=== PATIENT | female | born 1960 | race Caucasian/White ===

== ENCOUNTER 2016-04-23 01:50 | Observation (INO) | payer BC ==
[2016-04-23] MEDS ORDERED: 0.9 % SODIUM CHLORIDE 1,000 ML BAG IV ONE (02:13)
[2016-04-23] MEDS ORDERED: ONDANSETRON HCL IV 4 MG/2 ML VIAL IV ONE (02:13)
[2016-04-23] MEDS ORDERED: MORPHINE SULFATE 5 MG/ML PFS IVP ONE (02:15)
--- NOTE | 2016-04-23 02:19 | Emergency Department Record ---
History of Present Illness - General Chief Complaint: Abdominal Pain Stated Complaint: PAIN IN STOMACH Time Seen by Provider: 04/23/16 02:13 Source: Patient, Family Mode of Arrival: Ambulatory Limitations: No limitations - History of Present Illness Initial Comments: 56 yo female presents with mid abdominal pain since midnight. The pain woke her up. The pain is in the RUQ as well. She denies any symptoms during the day. She has some nausea but no vomiting. No diarrhea. The pain does not radiate to the back. No chest pain. She has had bariatric surgery in 2007 in [place] with a sleeve, hysterectomy and bladder suspension. No history of HTN, DM, CAD. She is on iron and vitamins. PCP is Dr Alford in [place]. MD Complaint: Abdominal pain Onset/Timin -: Hour(s) Location: Epigastric Radiation: Back Migration to: No migration Severity: Moderate Quality: Aching Consistency: Constant Improves With: Nothing Worsens With: Nothing Context: Sick contacts Associated Symptoms: Denies other symptoms - Related Data Patient : No Home Medications Medication Instructions Recorded Confirmed Last Taken Cholecalciferol (Vitamin D3) 5,000 unit PO DAILY 04/23/16 04/23/16 04/23/16 [Vitamin D3] Ferrous Sulfate [Iron] 325 mg PO DAILY 04/23/16 04/23/16 04/23/16 Lansoprazole [Prevacid] 30 mg PO 04/23/16 04/23/16 Allergies Allergy/AdvReac Type Severity Reaction Status Date / Time No Known Drug Allergies Allergy Verified 04/23/16 01:57 Travel Screening - Travel/Exposure Within Last 30 Days Have you traveled within the last 30 days?: No - Travel/Exposure Within Last Year Have you traveled outside the [place] in the last year?: No - Additonal Travel Details Have you been exposed to anyone with a communicable illness?: No - Travel Symptoms Symptom Screening: None Review of Systems Constitutional: Denies: Chills, Fever, Malaise, Weakness Eyes: Denies: Eye discharge ENT: Denies: Congestion, Throat pain Respiratory: Denies: Cough Cardiovascular: Denies: Chest pain, Palpitations, Syncope Endocrine: Denies: Fatigue, Polydipsia Gastrointestinal: Reports: Abdominal pain, Nausea. Denies: Constipation, Diarrhea, Hematemesis, Hematochezia, Melena, Vomiting Genitourinary: Denies: Dysuria, Urgency Musculoskeletal: Denies: Arthralgia, Back pain, Joint swelling, Myalgia, Neck pain Skin: Denies: Bruising, Change in color, Rash Neurological: Denies: Confusion, Headache Psychiatric: Denies: Anxiety Hematological/Lymphatic: Denies: Blood Clots, Easy bleeding, Easy bruising, Swollen glands Past Medical History - SOCIAL HISTORY Smoking Status: Never smoker Alcohol Use: Occassional Drug Use: None - RESPIRATORY Hx Respiratory Disorders: No - CARDIOVASCULAR Hx Cardio Disorders: No - NEURO Hx Neuro Disorders: No - GI Hx Reflux: Yes - Hx Genitourinary Disorders: No - ENDOCRINE Hx Endocrine Disorders: No - MUSCULOSKELETAL Hx Musculoskeletal Disorders: No - PSYCH Hx Psych Problems: No - HEMATOLOGY/ONCOLOGY Hx Hematology/Oncology Disorders: No Family Medical History Any Significant Family History?: No Physical Exam - General General Appearance: Alert, Oriented x3, Cooperative, No acute distress Limitations: No limitations - Head Head exam: Normal inspection - Eye Eye exam: Normal appearance, PERRL. negative: Conjunctival injection - ENT ENT exam: Normal exam, Mucous membranes moist Ear exam: Normal external inspection Nasal Exam: Normal inspection Mouth exam: Normal external inspection Teeth exam: Normal inspection Throat exam: Normal inspection - Neck Neck exam: Normal inspection, Full ROM. negative: Tenderness - Respiratory Respiratory exam: Normal lung sounds bilaterally. negative: Respiratory distress - Cardiovascular Cardiovascular Exam: Regular rate, Normal rhythm, Normal heart sounds - GI/Abdominal GI/Abdominal exam: Soft, Normal bowel sounds, Guarding, Tenderness (tender epigastric and RUQ, otherwise very soft,). negative: Diminished bowel sounds, Distended, Hyperactive bowel sounds, Pulsatile mass - Rectal Rectal exam: Deferred - exam: Deferred - Extremities Extremities exam: Normal inspection, Full ROM, Normal capillary refill. negative: Pedal edema, Tenderness - Back Back exam: Reports: Normal inspection. Denies: CVA tenderness (R), CVA tenderness (L), Vertebral tenderness - Neurological Neurological exam: Alert, Normal gait, Oriented X3, Reflexes normal - Psychiatric Psychiatric exam: Normal affect, Normal mood. negative: Agitated, Anxious - Skin Skin exam: Dry, Intact, Normal color, Warm Course Vital Signs 04/23/16 01:59 Temperature 97.4 F L Pulse Rate 50 L Respiratory 18 Rate Blood Pressure 98/57 Pulse Ox 100 - Reevaluation(s) Reevaluation #1: EKG 0216 sinus janelle at 46, intervals QTC 458, axis normal ST normal without acute changes 04/23/16 02:22 Reevaluation #2: Repeat BP 104/54 EMR reviewed. No prior visits 04/23/16 02:30 Reevaluation #3: the labs were reviewed no acute changes of the CBC, glucose is 148 with mild increase in AST,ALT at 76, 54 04/23/16 02:49 Reevaluation #4: The patient is doing much better at this time. No nausea and her pain is well controlled she reports to me 04/23/16 02:57 UA with Moderate LE, 6-10 WBC, and Few Bacteria, Nitrite negative. 04/23/16 03:05 Reevaluation #5: The [facility]: The gallbladder is distended. Multiple calcified gallstone are present. Correlate with US or HIDA. 04/23/16 05:13 - Consultations Consultation #1: I JEFF Ryan He will admit to [facility] for gall bladder surgery She will be admitted NPO, IVF, IV antibiotics Medical Decision Making - Lab Data Result diagrams: 04/23/16 02:15 04/23/16 02:15 Disposition Disposition: Admit Clinical Impression: Biliary colic, Acute cholecystitis Disposition: Still a Patient at [facility] Decision to Admit: Admit from ER Decision to Admit Date: 04/23/16 Decision to Admit Time: 06:13 Condition: (1) Good Instructions: Biliary Colic (ED) Forms: Patient Portal Access Time of Disposition: 06:13
[2016-04-23 02:24] LABS: BASO % 0.6 % (0-6); EOS % 2.5 % (0-6); GRAN % 56.1 % (47-80); HEMATOCRIT 35.1 % (35.0-47.0); HEMOGLOBIN 11.6 gm/dl (11.6-16.0); LYMPH % 34.6 % (16-45); MEAN CELL VOLUME 88.4 fl (81-97); MEAN CORPUSCULAR HEMOGLOBIN 29.2 pg (27-33); MEAN PLATELET VOLUME 8.4 fl (7.4-10.4); MONO % 6.2 % (0-9); PLATELET COUNT 311 K/uL (130-400); RED BLOOD COUNT 3.97 M/uL (3.80-5.40); RED CELL DISTRIBUTION WIDTH 13.5 % (11.5-14.5); WHITE BLOOD COUNT W/O DIFF 6.3 K/uL (4.2-12.2)
[2016-04-23 02:36] LABS: ALB/GLOB RATIO 1.3 (1.1-1.8); ALBUMIN 3.9 gm/dL (3.5-5.0); ALKALINE PHOSPHATASE 97 U/L (38-126); ALT/SGPT 54 U/L (9-52); AST/SGOT 76 U/L (14-36); BILIRUBIN,TOTAL 0.24 mg/dL (0.2-1.3); BLOOD UREA NITROGEN 16 mg/dL (7-17); CREATININE 0.8 mg/dL (0.52-1.04); EST GLOMERULAR FILTRATION RATE > 60 ml/min; GLUCOSE,RANDOM 148 mg/dL (70-110); LIPASE 113 U/L (23-300); TOTAL PROTEIN 6.8 gm/dL (6.3-8.2)
[2016-04-23 02:45] LABS: URINE APPEARANCE CLEAR; URINE BILIRUBIN NEGATIVE (NEGATIVE); URINE BLOOD NEGATIVE (NEGATIVE); URINE COLOR YELLOW; URINE GLUCOSE (UA) NEGATIVE (NEGATIVE); URINE KETONE NEGATIVE (NEGATIVE); URINE LEUKOCYTE ESTERASE MODERATE (NEGATIVE); URINE NITRITE NEGATIVE (NEGATIVE); URINE PROTEIN NEGATIVE (NEGATIVE); URINE UROBILINOGEN 0.2 E.U./dL (0.20 - 1.00)
[2016-04-23 02:57] LABS: INR 0.91; PARTIAL THROMBOPLASTIN TIME 23.6 SECONDS (24.5-39.1); PROTHROMBIN TIME (PATIENT) 10.3 SECONDS (9.5-12.1)
[2016-04-23 02:58] LABS: URINE BACTERIA FEW; URINE RBC 0 - 2 (NONE SEEN)
[2016-04-23] MEDS ORDERED: 0.9 % SODIUM CHLORIDE 1000ML 1,000 ML IV ONE (05:27)
[2016-04-23] MEDS ORDERED: ERTAPENEM SODIUM 1 G in 0.9 % SODIUM CHLORIDE 100ML 100 ML IVPB ONE (06:13)
[2016-04-23] MEDS ORDERED: HYDROMORPHONE HCL 1 MG/ML CPJ IVP ONE (06:36)
[2016-04-23] MEDS ORDERED: HYDROMORPHONE HCL 1 MG/ML CPJ IVP PRN ×2 (07:33→17:49)
[2016-04-23] MEDS ORDERED: ONDANSETRON HCL IV 4 MG/2 ML VIAL IVP PRN (07:33)
[2016-04-23] MEDS: 0.9 % SODIUM CHLORIDE 1000ML 1,000 ML IV PRN ×2 (08:25→12:11)
[2016-04-23] MEDS ORDERED: GLYCOPYRROLATE 0.2 MG/ML ML IV ONE (14:00)
[2016-04-23] MEDS ORDERED: BUPIVACAINE 0.25% W/EPI MPF 30ML VIAL IVP ONE (14:00)
[2016-04-23] MEDS ORDERED: DEXAMETHASONE 4 MG/ML 1ML VIAL IVP ONE (14:00)
[2016-04-23] MEDS ORDERED: PROPOFOL 10 MG/ML VIAL IV ONE (14:00)
[2016-04-23] MEDS ORDERED: ROCURONIUM BROMIDE 50MG/5ML VIAL IV ONE (14:00)
[2016-04-23] MEDS ORDERED: KETOROLAC 30 MG/ML VIAL IVP ONE (14:00)
[2016-04-23] MEDS ORDERED: SEVOFLURANE 250 ML INH ONE (14:00)
[2016-04-23] MEDS ORDERED: FAMOTIDINE 20MG TABLET PO ONE ×2 (16:00)
[2016-04-23] MEDS ORDERED: MECLIZINE 25 MG TABLET PO ONE ×2 (16:00)
[2016-04-23] MEDS ORDERED: ACETAMINOPHEN 1000MG/100 ML PREMIX IV ONE ×2 (16:00)
[2016-04-23] MEDS ORDERED: METOCLOPRAMIDE 10 MG TABLET PO ONE ×2 (16:00)
[2016-04-23] MEDS ORDERED: HYDROCODONE/APAP 5/325MG TABLET PO PRN ×2 (17:46→17:48)
[2016-04-23] MEDS ORDERED: ONDANSETRON HCL IV 4 MG/2 ML VIAL IVP ONE (17:52)
[2016-04-23] MEDS ORDERED: RINGERS SOLUTION,LACTATED 1,000 ML IV PRN (17:57)
[2016-04-24] MEDS ORDERED: NEOSTIGMINE 1 MG/1 ML,10ML VIAL IV ONE (08:49)
[2016-04-24] MEDS ORDERED: LIDOCAINE 2% MDV (20MG/ML) 20ML VIAL IV ONE (08:49)
[2016-04-24] MEDS ORDERED: MIDAZOLAM HCL 2MG/2ML VIAL IV ONE (08:49)
[2016-04-24] MEDS ORDERED: FENTANYL PF 100MCG/2ML VIAL IV ONE (08:49)
--- NOTE | 2016-04-25 13:22 | Operative Note ---
DATE OF SURGERY: 04/23/2016 SURGEON: Davis Ryan D.O. REFERRING PHYSICIAN: Dr. Gil PREOPERATIVE DIAGNOSIS: Acute cholecystitis. POSTOPERATIVE DIAGNOSIS: Acute cholecystitis. OPERATION: Laparoscopic cholecystectomy. INDICATION: Patient is a 48-year-old female who was admitted this morning under my name for acute cholecystitis. She did have ongoing right subcostal postprandial pain, and gallbladder wall thickening and distention on imaging. We did discuss cholecystectomy versus medical management. She desired surgical intervention. She had a prior laparoscopic gastric sleeve and abdominoplasty and had an omphalectomy at the time and had no navel. PROCEDURE: Therefore, after consent signed and questions answered, she was taken to the operating room and placed in the supine position. General anesthesia was administered per Department of Anesthesia. Patient's abdomen was prepped and draped in sterile fashion. Adequate timeout performed. The area in her midabdomen was anesthetized with 4 mL of 0.25% Sensorcaine with epinephrine. A 2 cm incision was made. This was carried down to the anterior rectus fascia. This was incised. Ashlie clamps were placed on the fascial edges and brought up into the wound. Stay sutures of 0 Vicryl were placed. The posterior rectus sheath was identified and incised, and the peritoneal cavity was entered bluntly. At this time, a 10 mm blunt Bernadette port was placed and adequate pneumoperitoneum established. Under direct visualization, an additional 5 mm epigastric and two 5 mm right subcostal ports were placed. Gallbladder was identified in the subhepatic space and noted to be very tense and distended, and I was unable to grab this with traditional graspers. Therefore, a ____ needle was used to decompress the gallbladder of about 80 mL of bilious fluid. At this time, the gallbladder was then retracted in a cephalad and lateral direction, opening up the triangle of Calot. The hepatocystic triangle was then thoroughly dissected out. There was no aberrant anatomy. No posterior ductal structures. We had an excellent critical view of safety. Two structures remained; the cystic duct and cystic artery. The cystic artery was taken down with the Tae Harmonic. The cystic duct was triply clipped and cut in standard fashion. The gallbladder was essentially peeled off the liver bed. This was placed in an EndoCatch bag and brought out infraumbilically. I did place application of FloSeal in the gallbladder fossa secondary to oozing, which was noted to be hemostatic at the end. There was no bleeding, no bile taryn, and no bile injury noted. Patient was leveled out and pneumoperitoneum was released. All ports were removed. The fascia was closed with 0 Vicryl in a [id number] fashion. The skin in all 4 ports was closed with 4-0 Vicryl. She was taken to the recovery room in satisfactory condition. FNDINGS AT THE TIME OF SURGERY: Acute cholecystitis. DO BLAKE Knight
--- NOTE | 2016-04-26 14:46 | CT SCAN REPORT ---
EXAM: CT SCAN ABDOMEN/PELVIS W CONTRAST HISTORY: EPIGASTRIC PAIN BEGINNING ABOUT FIVE HOURS EARLIER. HYSTERECTOMY AND BARIATRIC SURGERY. TECHNIQUE: Axial CT scan of the abdomen and pelvis performed following both oral and IV contrast administration, utilizing a dose of 100 mL of Omnipaque- 300 as the IV contrast. Preliminary report provided by [facility]. COMPARISON: None. FINDINGS: There are innumerable small calcifications of variable calcific density in the dependent portion of the gallbladder consistent with cholelithiasis. Mild distention of the gallbladder as well. No adjacent inflammatory-type changes are seen and no biliary dilatation is evident. If there is a clinical suspicion of acute cholecystitis, follow-up gallbladder ultrasound or HIDA scan may be useful. Mild diffuse fatty infiltration of the liver. No definite focal hepatic, splenic , adrenal, pancreatic, or renal mass identified. Postop changes in the region of the stomach consistent with prior bariatric surgery, probably with a small hiatal hernia present. The uterus is not identified consistent with the surgical history of hysterectomy as well. Oral contrast given has passed throughout the small bowel into the colon with no small bowel obstruction evident. The appendix is visualized and appears negative with no appendicitis evident. No free intraperitoneal air or free intraperitoneal fluid identified. Hypertrophic spurring in the spine and advanced facet joint arthropathy in the lower lumbar spine with mild anterior subluxation of L4 on L5, which appears to be on a degenerative basis related to this extensive facet joint arthropathy. Degenerative disc disease of the lumbosacral interspace. Prominent posterior spur at the T8/9 interspace. IMPRESSION: 1. CHOLELITHIASIS WITH MILD DISTENTION OF THE GALLBLADDER. 2. MILD DIFFUSE FATTY INFILTRATION OF THE LIVER. 3. POSTOP GASTRIC SURGERY PROBABLY WITH A SMALL HIATAL HERNIA CURRENTLY. 4. POSTOP HYSTERECTOMY. 5. PROMINENT DEGENERATIVE CHANGE IN THE SPINE DESCRIBED ABOVE. JOB NUMBER: [id number] [facility]
== END 2016-04-24 08:50 | disposition home or self-care (01) ==
LOC: ER 01:50 → MEDSURG 07:28
PROVIDERS: ADMIT Surgery; ATTEND Surgery
DX: K80.12 Calculus of gallbladder with acute and chronic cholecystitis without obstruction (principal)
CPT/HCPCS: 47562; 99285 ×2; 96365; 96375; 83690; 85025; 85730; 85610; 80053; 81001; 74177; 93005; 93010; 00790; G0378 ×2; Q9967; J1335; J2405; J3010; J1170; J2270; J1885; J2710; J7030

== ENCOUNTER 2016-04-28 15:20 | Emergency (ER) | payer BC ==
[2016-04-28] MEDS ORDERED: ONDANSETRON HCL IV 4 MG/2 ML VIAL IV ONE (15:54)
[2016-04-28] MEDS ORDERED: 0.9 % SODIUM CHLORIDE 1,000 ML BAG IV ONE (15:54)
--- NOTE | 2016-04-28 16:00 | Emergency Department Record ---
History of Present Illness - General Chief Complaint: General Stated Complaint: COMPLICATION FROM SURGERY Time Seen by Provider: 04/28/16 15:53 Source: Patient, Family Mode of Arrival: Ambulatory Limitations: No limitations - History of Present Illness Initial Comments: 56 yo female presents with nausea, poor appetite, and jaundice skin. She had her gall bladder removed on Friday at [facility] by Dr Ryan. Her abdominal pain is mild. She is able to control it with 1-2 doses of Tylenol. She still has not got her appetite back yet. No fever. She started to notice the skin changes on Friday. No vomiting. She had her first bowel movement yesterday and it was whitish. MD Complaint: Abdominal pain -: Days(s) Location: Diffuse Radiation: None Migration to: No migration Quality: Aching Consistency: Constant Improves With: Nothing Worsens With: Nothing Context: Recent surgery/procedure - Related Data Patient : No Home Medications Medication Instructions Recorded Confirmed Last Taken Cholecalciferol (Vitamin D3) 5,000 unit PO DAILY 04/23/16 04/28/16 04/23/16 [Vitamin D3] Ferrous Sulfate [Iron] 325 mg PO DAILY 04/23/16 04/28/16 04/23/16 Lansoprazole [Prevacid] 30 mg PO DAILY 04/23/16 04/28/16 04/23/16 Allergies Allergy/AdvReac Type Severity Reaction Status Date / Time morphine AdvReac Intermediate NAUSEA AND Verified 04/23/16 11:40 VOMITING Travel Screening - Travel/Exposure Within Last 30 Days Have you traveled within the last 30 days?: No Review of Systems Constitutional: Reports: Malaise. Denies: Chills, Fever Eyes: Denies: Eye discharge, Eye pain, Photophobia, Vision change ENT: Denies: Congestion, Throat pain Respiratory: Denies: Cough, Dyspnea, Hemoptysis, Stridor, Wheezes Cardiovascular: Denies: Chest pain, Palpitations, Syncope Endocrine: Denies: Fatigue Gastrointestinal: Reports: As per HPI, Abdominal pain, Nausea. Denies: Diarrhea , Hematemesis, Hematochezia, Vomiting Genitourinary: Denies: Dysuria, Urgency Musculoskeletal: Denies: Arthralgia, Back pain, Neck pain Skin: Reports: Change in color Neurological: Denies: Confusion, Headache Psychiatric: Denies: Anxiety Hematological/Lymphatic: Denies: Blood Clots, Easy bleeding, Easy bruising, Swollen glands Past Medical History - SOCIAL HISTORY Smoking Status: Former smoker Alcohol Use: None Drug Use: None - RESPIRATORY Hx Respiratory Disorders: Yes Hx Sleep Apnea: Yes Hx of CPAP: Yes (doesnt use since wt loss sx) - CARDIOVASCULAR Hx Cardio Disorders: Yes Hx Edema: Yes (a little today in hands) Hx Hypotension: Yes (today) - NEURO Hx Neuro Disorders: No - GI Hx GI Disorders: Yes Hx Abdominal Pain: Yes (ruq) Hx Reflux: Yes Hx Ulcer: Yes (age 16) Hx Wt Loss/Wt Gain: Yes - Hx Genitourinary Disorders: Yes Hx Bladder Problem: Yes Comment:: bladder suspension - ENDOCRINE Hx Endocrine Disorders: No - MUSCULOSKELETAL Hx Musculoskeletal Disorders: Yes Hx Arthritis: Yes (rt knee & hands & low back) Comment:: Left knee replacement - PSYCH Hx Psych Problems: No - HEMATOLOGY/ONCOLOGY Hx Hematology/Oncology Disorders: No Family Medical History Any Significant Family History?: Yes Hx Cancer: Father, Brother/Sister Physical Exam - General General Appearance: Alert, Oriented x3, Cooperative, No acute distress Limitations: No limitations - Head Head exam: Normal inspection - Eye Eye exam: PERRL, Scleral icterus. negative: Normal appearance, Conjunctival injection, Periorbital swelling - ENT ENT exam: Normal exam Ear exam: Normal external inspection Nasal Exam: Normal inspection Mouth exam: Normal external inspection Teeth exam: Normal inspection Throat exam: Normal inspection - Neck Neck exam: Normal inspection, Full ROM. negative: Tenderness - Respiratory Respiratory exam: Normal lung sounds bilaterally. negative: Respiratory distress - Cardiovascular Cardiovascular Exam: Regular rate, Normal rhythm, Normal heart sounds - GI/Abdominal GI/Abdominal exam: Soft, Tenderness (mild tenderness in the RUQ remainder is very soft and non tender). negative: Diminished bowel sounds, Distended, Guarding, Rebound, Rigid - Rectal Rectal exam: Deferred - exam: Deferred - Extremities Extremities exam: Normal inspection, Full ROM, Normal capillary refill. negative: Pedal edema, Tenderness - Back Back exam: Reports: Normal inspection - Neurological Neurological exam: Alert, Oriented X3 - Psychiatric Psychiatric exam: negative: Agitated, Anxious - Skin Skin exam: Pallor. negative: Normal color Course Vital Signs 04/28/16 15:43 Temperature 98.2 F Pulse Rate 70 Respiratory 18 Rate Blood Pressure 142/93 Pulse Ox 98 - Reevaluation(s) Reevaluation #1: EMR reviewed from the operation on Friday. 04/28/16 15:59 Reevaluation #2: UA LE large, with few bacteria CMP Bili 6.7 T, 3.3 D, AST 129, ALT 288, AP 241 I will page the patient's surgeon. 04/28/16 17:24 Reevaluation #3: The CT scan demonstrated biliary and pancreatic duct dilatation with pacreatitis. Lipase is 4747 Invanz ordered Awaiting a bed at [facility] 04/28/16 18:58 - Consultations Consultation #1: 17:[address] Ryan. He requests CT scan with contrast and transfer to [facility] Medical Decision Making - Lab Data Result diagrams: 04/28/16 16:20 04/28/16 16:20 Disposition Disposition: Transfer Clinical Impression: Elevated liver enzymes Abdominal pain Qualifiers: Abdominal location: unspecified location Qualified Code(s): R10.9 - Unspecified abdominal pain Pancreatitis Qualifiers: Chronicity: acute Acute pancreatitis complication: unspecified Disposition: Acute Care Hospital Transfer Transfer To: [facility] Reason For Transfer: post op surgery consultation Accepting Physician: Connor Time Discussed w/Accepting Physician: 17:33 Condition: (2) Stable Forms: Patient Portal Access Time of Disposition: 17:33
[2016-04-28 16:31] LABS: BASO % 0.5 % (0-6); EOS % 3.6 % (0-6); GRAN % 73.6 % (47-80); HEMATOCRIT 37.3 % (35.0-47.0); HEMOGLOBIN 12.6 gm/dl (11.6-16.0); LYMPH % 15.5 % (16-45); MEAN CELL VOLUME 87.6 fl (81-97); MEAN CORPUSCULAR HEMOGLOBIN 29.6 pg (27-33); MEAN CORPUSCULAR HGB CONC 33.8 g/dl (32-36); MEAN PLATELET VOLUME 8.9 fl (7.4-10.4); MONO % 6.8 % (0-9); PLATELET COUNT 337 K/uL (130-400); RED BLOOD COUNT 4.26 M/uL (3.80-5.40); RED CELL DISTRIBUTION WIDTH 13.9 % (11.5-14.5); WHITE BLOOD COUNT W/O DIFF 6.4 K/uL (4.2-12.2)
[2016-04-28 16:33] LABS: URINE APPEARANCE CLEAR; URINE BILIRUBIN LARGE (NEGATIVE); URINE BLOOD NEGATIVE (NEGATIVE); URINE COLOR YELLOW; URINE GLUCOSE (UA) NEGATIVE (NEGATIVE); URINE KETONE NEGATIVE (NEGATIVE); URINE LEUKOCYTE ESTERASE LARGE (NEGATIVE); URINE NITRITE NEGATIVE (NEGATIVE); URINE PROTEIN NEGATIVE (NEGATIVE); URINE UROBILINOGEN 0.2 E.U./dL (0.20 - 1.00)
[2016-04-28 16:43] LABS: ALKALINE PHOSPHATASE 241 U/L (38-126); ALT/SGPT 288 U/L (9-52); AST/SGOT 129 U/L (14-36); BILIRUBIN,DIRECT 3.3 mg/dL (0-0.3); BILIRUBIN,TOTAL 6.76 mg/dL (0.2-1.3); BLOOD UREA NITROGEN 12 mg/dL (7-17); CREATININE 0.7 mg/dL (0.52-1.04); EST GLOMERULAR FILTRATION RATE > 60 ml/min; GLUCOSE,RANDOM 117 mg/dL (70-110); TOTAL PROTEIN 7.6 gm/dL (6.3-8.2)
[2016-04-28 16:44] LABS: INR 0.88; PARTIAL THROMBOPLASTIN TIME 26.3 SECONDS (24.5-39.1)
[2016-04-28 17:09] LABS: URINE BACTERIA FEW; URINE EPITHELIAL CELLS 0 - 2 (FEW); URINE RBC 0 - 2 (NONE SEEN)
[2016-04-28] MEDS ORDERED: MORPHINE SULFATE 5 MG/ML PFS IVP ONE (17:25)
[2016-04-28] MEDS ORDERED: HYDROMORPHONE HCL 1 MG/ML CPJ IVP ONE (17:36)
[2016-04-28 17:46] LABS: LIPASE 4747 U/L (23-300)
[2016-04-28] MEDS ORDERED: ERTAPENEM SODIUM 1 G in 0.9 % SODIUM CHLORIDE 100ML 100 ML IVPB ONE (18:57)
[2016-04-28] MEDS ORDERED: ONDANSETRON HCL IV 4 MG/2 ML VIAL IVP ONE (19:59)
== END 2016-04-28 20:47 | disposition short-term general hospital (02) ==
LOC: ER 15:20
DX: K85.90 Acute pancreatitis without necrosis or infection, unspecified (principal); R10.11 Right upper quadrant pain; R94.5 Abnormal results of liver function studies; R17 Unspecified jaundice; R11.0 Nausea; Z90.49 Acquired absence of other specified parts of digestive tract
CPT/HCPCS: 99285 ×2; 96376; 96365; 96375; 83690; 85025; 85730; 85610; 80076; 80048; 81001; 74177; Q9967; J1335; J2405; J1170; J7030